=== PATIENT | female | born 1945 | race Caucasian/White ===

== ENCOUNTER 2019-10-24 17:29 | Inpatient (IN) | payer MEDICARE, BC ==
[2019-10-24] VITALS (8 sets, daily range): BP systolic 116–157; BP diastolic 62–92
[~2019-10-24] VITALS: Ht 167.6 cm; Wt 83.0 kg
[2019-10-24] MEDS ORDERED: DILTIAZEM HCL 25 MG IV ONE (17:39)
[2019-10-24] MEDS ORDERED: IV NORMAL SALINE 1000 ML BAG IV ONE (17:45)
[2019-10-24] MEDS ORDERED: DILTIAZEM HCL 25 MG IV IV ONE (17:45)
--- NOTE | 2019-10-24 17:45 | NUR ---
Patient ambulated with stable gait. Speech clear, speaks in complete sentences. No acute neuro deficits. Patient came for c/o palpitations that occured shortly [employer] after walking her dogs. Patient states she is on anticoagulants for afib. Respiratory even and unlabored, no cough no sob. Patient appears jittery, and shaky. Patient in bed at lowest position, sr upx2, call light within reach. Fall precautions implemented per protocol.
[2019-10-24] MEDS ORDERED: LEVO100T10 PO (17:48)
[2019-10-24] MEDS ORDERED: RIVA10TA PO (17:48)
[2019-10-24] MEDS ORDERED: DILT180T11 PO (17:48)
[2019-10-24] MEDS ORDERED: TRIA1CAP6 PO (17:48)
[2019-10-24] MEDS ORDERED: ATOR40TA PO (17:48)
[2019-10-24 17:50] LABS: BASOPHILS # (AUTO) 0.1 K/uL (0.0-8.0); BASOPHILS % (AUTO) 0.7 % (0.0-2.0); EOSINOPHILS # (AUTO) 0.2 K/uL (0.0-0.7); EOSINOPHILS % (AUTO) 1.9 % (0.0-7.0); HEMOGLOBIN 14.4 g/dL (10.9-14.3); LYMPHOCYTES # (AUTO) 1.4 K/uL (20.0-40.0); LYMPHOCYTES % (AUTO) 16.8 % (20.5-51.5); MEAN CORPUSCULAR HGB CONC 34 g/dL (32.3-35.6); MEAN CORPUSCULAR VOLUME 89.4 fL (75.5-95.3); MONOCYTES # (AUTO) 0.6 K/uL (2.0-10.0); MONOCYTES % (AUTO) 7.3 % (0.0-11.0); NEUTROPHILS # (AUTO) 5.9 K/uL (1.8-8.9); NEUTROPHILS % (AUTO) 73.3 % (38.5-71.5); PLATELET COUNT (AUTO) 214 K/uL (179-408); RED BLOOD CELL COUNT(AUTO) 4.81 MIL/uL (3.63-4.92); WHITE BLOOD COUNT (AUTO) 8.1 K/uL (3.8-11.8)
[2019-10-24 17:55] LABS: CREATININE 1.1 mg/dL (0.6-1.3)
[2019-10-24] MEDS ORDERED: DILTIAZEM HCL IV 125 MG in IV DEXTROSE 5% 100 ML IV ONE (18:00)
[2019-10-24 18:05] LABS: POTASSIUM 2.6 mmol/L (3.5-5.1)
[2019-10-24 18:08] LABS: BILIRUBIN,DIRECT 0.1 mg/dL (0.0-0.2); BILIRUBIN,TOTAL 0.6 mg/dL (0.2-1.0); TOTAL PROTEIN, SERUM 7.6 g/dL (6.4-8.2)
[2019-10-24] MEDS ORDERED: POTASSIUM CHLORIDE 20 MEQ TAB.PRT.SR ONE (18:08)
[2019-10-24] MEDS ORDERED: POTASSIUM CHLORIDE 20 MEQ TAB.PRT.SR PO ONE (18:15)
--- NOTE | 2019-10-24 18:16 | NUR ---
Cardizem titrated to 10ml/hr
--- NOTE | 2019-10-24 18:20 | NUR ---
D/C cardizem per ERMD Dr. Saldivar, patient will be started on amiodarone
[2019-10-24] MEDS ORDERED: AMIODARONE HCL 150 MG/3 ML VIAL IV ONE ×2 (18:24→20:27)
[2019-10-24] MEDS ORDERED: HYDROCODONE/APAP 5-325MG TABLET PO PRN (18:30)
[2019-10-24] MEDS ORDERED: AMIODARONE HCL IV 150 MG in IV DEXTROSE 5% 100 ML IV ONE (18:30)
[2019-10-24] MEDS ORDERED: ACETAMINOPHEN 325 MG TABLET PO PRN (18:30)
[2019-10-24] MEDS ORDERED: MAGNESIUM HYDROXIDE 30 ML LIQUID UDC PO PRN (18:30)
[2019-10-24] MEDS ORDERED: ONDANSETRON 4 MG/2 ML VIAL IV PRN (18:30)
[2019-10-24] MEDS ORDERED: Z GUARD REMEDY PASTE 57 GM TUBE TOP PRN (18:30)
--- NOTE | 2019-10-24 19:00 | NUR ---
Report given to EUSEBIO Mccollum
--- NOTE | 2019-10-24 19:18 | NUR ---
Patient transported to CCU in stable condition.
--- NOTE | 2019-10-24 19:20 | NUR ---
Report received from EUSEBIO [place].Pt admitted from ER via [facility].Denies chest pain.Afib on monitor with hr 145.Report given to EUSEBIO KENNY
--- NOTE | 2019-10-24 19:30 | NUR ---
Report received from Veda KAPLAN. Patient is a 74 y.o female admitted for Afib with RVR. AAO, denies SOB or chest pain. To [facility] with assist; gait steady, denies dizziness during commode use. Voided without difficulty. Remains in uncontrolled Afib, asymptomatic. Addendum: 10/25/19 at 0106 by EFRAÍN COLLAZO RN Amended: Links added. Addendum: 10/25/19 at 0109 by EFRAÍN COLLAZO RN Amended: Links added.
--- NOTE | 2019-10-24 20:00 | NUR ---
Eli Pereira NP informed of patient's condition and HR remains in uncontrolled Afib. Will order Amiodarone drip.
--- NOTE | 2019-10-24 20:42 | NUR ---
Amiodarone drip started to [facility] IV site. Patient cooperative; CCU routines discussed, verbalized understanding. Addendum: 10/25/19 at 0109 by EFRAÍN COLLAZO RN Amended: Links added.
[2019-10-24] MEDS ORDERED: AMIODARONE HCL IV 900 MG in IV DEXTROSE 5% 482 ML IV PRN (21:00)
--- NOTE | 2019-10-24 21:00 | NUR ---
Eli Pereira FACILITIES MECHANICAL DESIGN ENGINEER at bedside.
[2019-10-24] MEDS ORDERED: ATORVASTATIN 40 MG TABLET PO SCH (23:00)
[2019-10-25] VITALS (7 sets, daily range): BP systolic 122–159; BP diastolic 64–84
[2019-10-25 05:17] LABS: BASOPHILS % (AUTO) 0.4 % (0.0-2.0); EOSINOPHILS # (AUTO) 0.1 K/uL (0.0-0.7); EOSINOPHILS % (AUTO) 1.4 % (0.0-7.0); HEMOGLOBIN 15.4 g/dL (10.9-14.3); LYMPHOCYTES # (AUTO) 0.8 K/uL (20.0-40.0); LYMPHOCYTES % (AUTO) 11.9 % (20.5-51.5); MEAN CORPUSCULAR HEMOGLOBIN 29.6 uug (24.7-32.8); MEAN CORPUSCULAR HGB CONC 34 g/dL (32.3-35.6); MEAN CORPUSCULAR VOLUME 88.4 fL (75.5-95.3); MONOCYTES # (AUTO) 0.6 K/uL (2.0-10.0); NEUTROPHILS # (AUTO) 5.5 K/uL (1.8-8.9); NEUTROPHILS % (AUTO) 77.3 % (38.5-71.5); PLATELET COUNT (AUTO) 228 K/uL (179-408); RED BLOOD CELL COUNT(AUTO) 5.21 MIL/uL (3.63-4.92); WHITE BLOOD COUNT (AUTO) 7.2 K/uL (3.8-11.8)
--- NOTE | 2019-10-25 06:10 | NUR ---
Am care done. Patient verbalizing desire to go home. Advised appropriately. Still awaiting for am lab results.
--- NOTE | 2019-10-25 06:25 | NUR ---
Patient getting more anxious, wants to go AMA. Risks discussed. Stated she has an appointment for her knee injection today. HR up in the 120's during activity. Amiodarone drip at 0.5 m/min continuously. Still awaiting for am lab results; called twice. Chemistry still pending as per Eddie clinical laboratory manager. Message sent to Eli Pereira NP; awaiting call back.
[2019-10-25 06:29] LABS: CREATININE 0.8 mg/dL (0.6-1.3); PHOSPHOROUS 3.7 mg/dL (2.5-4.9)
--- NOTE | 2019-10-25 06:35 | NUR ---
Call placed to [facility] re: low potassium and patient's desire to go AMA. Geremias Washburn carbon blocks press operator.
[2019-10-25] MEDS ORDERED: POTASSIUM CHLORIDE 20 MEQ TAB.PRT.SR PO ONE (06:45)
--- NOTE | 2019-10-25 06:45 | NUR ---
Geremias Washburn called back; informed of patient's status. Order received. Patient informed of Potassium po order.
[2019-10-25] MEDS: LEVOTHYROXINE SODIUM 100 MCG TABLET PO SCH ×2 (06:59→07:06)
--- NOTE | 2019-10-25 07:00 | NUR ---
Eli Pereira called back; talked to patient and risks of going home AMA discussed. Patient still wants to go home. PO Martha HERNANDEZ given.
--- NOTE | 2019-10-25 07:10 | NUR ---
AMA document signed by patient. IV dc'd.
--- NOTE | 2019-10-25 07:15 | NUR ---
DC AMA per wheelchair.
[2019-10-25] MEDS ORDERED: RIVAROXABAN 10 MG TABLET PO SCH (09:00)
[2019-10-25] MEDS ORDERED: ATORVASTATIN 40 MG TABLET PO SCH (09:00)
[2019-10-25] MEDS ORDERED: TRIAMTERENE/HCTZ 75-50 MG TABLET PO SCH (09:00)
== END 2019-10-25 07:16 | disposition left against medical advice (07) | DRG 310 ==
LOC: ER 17:29 → CCU 18:35
PROVIDERS: ADMIT Nurse Practitioner Acute Care; ATTEND Nurse Practitioner Acute Care
PROC: 3E033RZ Introduction of Antiarrhythmic into Peripheral Vein, Percutaneous Approach (ICD-10-PCS; principal; 2019-10-24)
DX: I48.91 Unspecified atrial fibrillation (principal); E03.9 Hypothyroidism, unspecified; Z79.01 Long term (current) use of anticoagulants; Z79.890 Hormone replacement therapy; J45.909 Unspecified asthma, uncomplicated; E78.5 Hyperlipidemia, unspecified; E87.6 Hypokalemia; I10 Essential (primary) hypertension
CPT/HCPCS: 36415; 70030-TC; 71045; 83735; 84100; 84443; 85025; 85730; 93005; A4663; G0378; J0282; J3490; J7030; J7060